=== PATIENT | female | born 1975 | race African-American/Black ===

== ENCOUNTER 2021-02-21 08:03 | Emergency (ER) | payer OTHER, SELFPAY ==
[2021-02-21 08:16] VITALS: BP 147/74; PULSE 70; RESP 18; TEMP 36.6; O2SAT 100
--- NOTE | 2021-02-21 08:27 | ED.EAR ---
HPI - Ear Problem General Chief complaint: Ear Stated complaint: Ear Pain Time Seen by Provider: 02/21/21 08:16 Source: patient and RN notes reviewed Mode of arrival: ambulatory Limitations: no limitations History of Present Illness HPI Narrative: Patient presents today complaining of right ear pain since yesterday. Patient does report some clear drainage, but states she is hearing well. Currently rates her pain 9/10 with intermittent sharp pains. She has been taking Claritin which has been helping. Denies any additional symptoms. MD Complaint: ear pain Related Data Home Medications Medication Instructions Recorded Confirmed hydrochlorothiazide 25 mg PO DAILY 02/21/21 02/21/21 Allergies Allergy/AdvReac Type Severity Reaction Status Date / Time No Known Allergies Allergy Verified 02/21/21 08:20 Review of Systems Review of Systems: CONSTITUTIONAL: Denies body aches, fever, chills, or sweats. EYES: Denies visual changes, redness, or discharge. ENT: Denies rhinorrhea, congestion, sore throat. + Right ear pain CARDIOVASCULAR: Denies chest pain, palpitations, or edema. RESPIRATORY: Denies cough or dyspnea. GASTROINTESTINAL: Denies abdominal pain, nausea, vomiting, or diarrhea. GENITOURINARY: Denies dysuria or hematuria. SKIN: Denies rash, itching, or wounds. MUSCULOSKELETAL: Denies back pain, joint pain, or myalgia. NEUROLOGIC: Denies headache, numbness, tingling, or weakness. PSYCH: Denies depression or anxiety. FORMERLY [facility] Past Medical History Medical History (Updated 02/21/21 @ 08:33 by Zonia Palomares, [facility], ) Diabetes Hypertension Comments At time of signature, I have reviewed and agree with nursing past medical, surgical, social and family history unless otherwise noted. Please see nursing chart for further information. There is no relevant family history pertinent to the presenting complaint Exam Narrative: GENERAL: Well-appearing, over-nourished, and in no acute distress. HEAD: Normocephalic, atraumatic. EYES: EOMI. No redness or drainage. Conjunctivae normal. ENT: Mucous membranes pink and moist. Nares clear. No rhinorrhea. Left TM and canal normal. Right TM normal with middle ear effusion. Canal normal. Throat normal. Uvula midline. NECK: Normal AROM. Supple. No lymphadenopathy. CHEST: No respiratory distress. EXTREMITIES: Normal range of motion. No edema. SKIN: Warm, dry, no rash. Capillary refill normal. Normal skin turgor. NEURO: No focal deficits. Alert and oriented x3. Gait steady. PSYCH: Normal affect. No signs of depression or anxiety. Course Vital Signs Vital signs: Vital Signs Temperature 97.9 F 02/21/21 08:16 Pulse Rate 70 02/21/21 08:16 Respiratory Rate 18 02/21/21 08:16 Blood Pressure 147/74 H 02/21/21 08:16 Pulse Oximetry 100 02/21/21 08:16 Temperature 97.9 F 02/21/21 08:16 Pulse Rate 70 02/21/21 08:16 Respiratory Rate 18 02/21/21 08:16 Blood Pressure 147/74 H 02/21/21 08:16 Pulse Oximetry 100 02/21/21 08:16 Reviewed. Pt has been instructed to follow up with her PCP regarding her elevated blood pressure today. Medical Decision Making Differential Diagnosis Differential Diagnosis: Otitis media, otitis externa, ruptured TM, serous otitis, eustachian tube dysfunction Vital Signs Vital Signs: Vital Signs Temperature 97.9 F 02/21/21 08:16 Pulse Rate 70 02/21/21 08:16 Respiratory Rate 18 02/21/21 08:16 Blood Pressure 147/74 H 02/21/21 08:16 Pulse Oximetry 100 02/21/21 08:16 Temperature 97.9 F 02/21/21 08:16 Pulse Rate 70 02/21/21 08:16 Respiratory Rate 18 02/21/21 08:16 Blood Pressure 147/74 H 02/21/21 08:16 Pulse Oximetry 100 02/21/21 08:16 Critical Care Time Critical Care Time Critical Care Time: No Discharge Plan Discharge Clinical Impression: Acute serous otitis media of right ear Qualifiers: Recurrence: not specified as recurrent Qualified Code(s): H65.01 - Acute serous otitis
== END 2021-02-21 08:36 | disposition home or self-care (01) ==
PROVIDERS: Emergency Provider Nurse Practitioner
DX: H65.01 Acute serous otitis media, right ear (principal); E11.9 Type 2 diabetes mellitus without complications; I10 Essential (primary) hypertension
CPT/HCPCS: 99202; G0463

== ENCOUNTER 2021-05-08 15:53 | Emergency (ER) | payer OTHER, SELFPAY ==
[2021-05-08 16:12] VITALS: BP 150/73; PULSE 91; RESP 16; TEMP 36.3; O2SAT 100
--- NOTE | 2021-05-08 16:27 | ED.SKABFB ---
HPI - Skin/Abscess/Foreign Bdy General Chief complaint: Skin/Abscess/Foreign Body Stated complaint: rash Time Seen by Provider: 05/08/21 16:20 Source: patient Mode of arrival: ambulatory Limitations: no limitations History of Present Illness HPI narrative: 45-year-old female presents to the [facility] with complaints of an itchy rash for the last 3 weeks. States the rash has cleared on her buttock and her back and abdomen. Still having on bilateral arms. Patient reports that her significant other had changed the laundry detergent recently. Denies any facial swelling, tongue swelling, shortness of breath or chest pain. Denies any abdominal pain. Discussed with patient the importance of follow-up along with close monitoring of her blood sugars. MD complaint: rash Related Data Home Medications Medication Instructions Recorded Confirmed hydrochlorothiazide 25 mg PO DAILY 02/21/21 02/21/21 Allergies Allergy/AdvReac Type Severity Reaction Status Date / Time No Known Allergies Allergy Verified 02/21/21 08:20 Review of Systems Review of Systems: All systems reviewed & are unremarkable except as noted in HPI and below Constitutional: Constitutional: Reports no additional constitutional complaints, Denies chills and Denies fever(s) Eyes: Eyes: Reports no additional eye complaints ENT: Reports system reviewed and no additional complaints, except as documented Cardiovascular: Cardiovascular: Reports no additional cardiovascular complaints Gastrointestinal: Gastrointestinal: Reports no additional gastrointestinal complaints Musculoskeletal: Musculoskeletal: Reports no additional musculoskeletal complaints Integumentary/Breasts: Skin/Breast: Reports as per HPI and Reports rash Neurologic: Reports system reviewed and no additional complaints, except as documented Psychiatric: Psychiatric: Reports no additional psychiatric complaints Allergic/Immunologic: Allergic/Immunologic: Reports no additional allergic/immunologic complaints PMFSH Past Medical History Medical History Diabetes Hypertension Social History Social History (Updated 05/09/21 @ 14:51 by Vangie Hardy) Living arrangements: with family Gender identity (if verbalized by the patient): Female Comments At the time of my signature, I reviewed and agree with the nursing past medical, surgical, social, and family history. There is no relevant family history pertinent to the patient complaint. Exam Const: General: healthy appearing, no acute distress and alert Nutritional Appearance: well nourished and obese Orientation/consciousness: patient oriented x3 Limitations: no limitations HENMT: Head: normal to inspection Ears: external ears normal, TM's normal bilaterally and EAC's normal Eyes: Conjunctivae: conjunctivae normal Pupils: Equal, round and reactive pupils present Neck: Neck: normal visual inspection, no lymphadenopathy and no meningeal signs Chest: Chest palpation & inspection: normal inspection of the chest Resp: Effort & Inspection: normal respiratory effort Auscultation: clear to auscultation bilaterally Cardio: Rate: regular rate Rhythm: regular rhythm GI: GI Palp: Yes Soft to palpation and No Tenderness to palpation present (GI) : General: Yes no CVA tenderness Back/Spine/Pelvis: Back: no CVA tenderness Skin: Wounds: no wounds Other: Hives noted to left upper arm Neuro: General: patient oriented x3, moves all extremities and no meningeal signs Speech: normal speech Gait exam (Neuro): Normal gait present Extrem: General: normal to inspection Psych: Appearance: grossly normal and well kempt Mental Status: mental status grossly normal Affect: normal affect Attitude: cooperative Thought content: Yes Normal thought content present Course Course Emergency Course: Discharge instructions reviewed with patient, as well as provided in writing per nursing staff. T
[2021-05-08 16:28] LABS: Glucose Point of Care 206 mg/dl (65-105)
== END 2021-05-08 16:53 | disposition home or self-care (01) ==
PROVIDERS: Emergency Provider Nurse Practitioner
DX: L25.9 Unspecified contact dermatitis, unspecified cause (principal); E11.9 Type 2 diabetes mellitus without complications
CPT/HCPCS: 82948; 99213; G0463

== ENCOUNTER 2021-08-22 09:56 | Emergency (ER) | payer OTHER, SELFPAY ==
--- NOTE | 2021-08-22 10:03 | ED.URI ---
HPI - URI/Sore Throat General Chief Complaint: Ear Stated Complaint: Nausea,Ear Pain Time Seen by Provider: 08/22/21 10:06 Source: patient, RN notes reviewed and old records reviewed Mode of arrival: ambulatory Limitations: no limitations History of Present Illness HPI Narrative: 46-year-old female presents to the [facility] with complaints of right ear pain and drainage. Patient reports a history of ear issues in that same ear. Denies fevers. Has had nausea without vomiting. Denies chest pain or shortness of breath. No abdominal pain. Related Data Home Medications Medication Instructions Recorded Confirmed hydrochlorothiazide 25 mg PO DAILY 02/21/21 08/22/21 Allergies Allergy/AdvReac Type Severity Reaction Status Date / Time No Known Allergies Allergy Verified 08/22/21 10:02 Review of Systems Review of Systems: All systems reviewed & are unremarkable except as noted in HPI and below Constitutional: Constitutional: Reports no additional constitutional complaints, Denies chills, Denies fever(s) and Denies headache(s) Eyes: Eyes: Reports no additional eye complaints ENT: Reports as per HPI, Denies vertigo, Denies dizziness, Denies headache(s), Denies nasal congestion and Denies sore throat Comments: Right ear pain Cardiovascular: Cardiovascular: Reports no additional cardiovascular complaints, Denies chest pain, Denies syncope, Denies rapid heart rate and Denies dyspnea Respiratory: Respiratory: Reports no additional respiratory complaints, Denies cough, Denies dyspnea and Denies wheezing Gastrointestinal: Gastrointestinal: Reports as per HPI, Denies abdominal pain, Denies diarrhea, Reports nausea and Denies vomiting Musculoskeletal: Musculoskeletal: Reports no additional musculoskeletal complaints and Denies numbness Integumentary/Breasts: Skin/Breast: Reports system reviewed and no additional complaints, except as docu Neurologic: Reports system reviewed and no additional complaints, except as documented, Denies vertigo, Denies dizziness, Denies syncope, Denies headache(s), Denies focal weakness and Denies numbness Psychiatric: Psychiatric: Reports no additional psychiatric complaints Allergic/Immunologic: Allergic/Immunologic: Reports no additional allergic/immunologic complaints and Denies wheezing PMFSH Past Medical History Medical History Diabetes Hypertension Social History Social History (Updated 05/09/21 @ 14:51 by Vangie Hardy) Gender identity (if verbalized by the patient): Female Comments At the time of my signature, I reviewed and agree with the nursing past medical, surgical, social, and family history. There is no relevant family history pertinent to the patient complaint. Exam Const: General: cooperative, healthy appearing, no acute distress, well developed and alert Nutritional Appearance: well nourished and obese Orientation/consciousness: patient oriented x3 Limitations: no limitations HENMT: Head: normal to inspection Ears: external ears normal, EAC's normal, mastoids normal, no periauricular adenopathy and TM abnormal erythematous on the right and with loss of landmarks on the right General nose exam: Normal external nose present and Normal nasal mucous membranes and turbinates present Face and sinus: normal facial exam Mouth: Yes Normal oral and palatal mucosa present and Yes lip normal Throat: posterior oropharynx normal, tonsils normal and uvula midline Eyes: Conjunctivae: conjunctivae normal Pupils: Equal, round and reactive pupils present Neck: Neck: normal visual inspection, no lymphadenopathy and no meningeal signs Chest: Chest palpation & inspection: normal inspection of the chest Resp: Effort & Inspection: normal respiratory effort and no use of accessory muscles Auscultation: clear to auscultation bilaterally, no crackles, no rales, no rhonchi and no wheezes Cardio: Rate: regular rate Rhythm: regular rhythm
[2021-08-22 10:07] VITALS: BP 159/80; PULSE 83; RESP 18; TEMP 36.3; O2SAT 100
[2021-08-22 10:12] VITALS: BP 159/80; PULSE 83; RESP 18; TEMP 36.3; O2SAT 100
== END 2021-08-22 10:17 | disposition home or self-care (01) ==
PROVIDERS: Emergency Provider Nurse Practitioner
DX: H66.001 Acute suppurative otitis media without spontaneous rupture of ear drum, right ear (principal); E11.9 Type 2 diabetes mellitus without complications; I10 Essential (primary) hypertension
CPT/HCPCS: 99213; G0463

== ENCOUNTER 2021-11-11 23:44 | Emergency (ER) | payer OTHER, SELFPAY ==
[2021-11-11 23:46] VITALS: BP 190/84; PULSE 96; RESP 14; TEMP 36.9; O2SAT 100
--- NOTE | 2021-11-11 23:47 | ED.HA ---
HPI - Headache General Chief Complaint: Headache Stated Complaint: Headache Time Seen by Provider: 11/11/21 23:46 History of Present Illness HPI Narrative: 46-year-old female presents to the emergency room for evaluation of a headache that has been present for 3 weeks. Patient states the pain is over her left eye and left cheek. Patient states the pain is worse when she applies pressure when she bends over to put her shoes on. Patient denies fever. Associated with nausea, vomiting, and nonproductive cough. Patient states that she took a Z-Yadiel, which she just happened to have laying around, which had no effect on her symptoms. Denies photophobia, phonophobia, nausea or vomiting. Denies injury or trauma Related Data Home Medications Medication Instructions Recorded Confirmed hydrochlorothiazide 25 mg PO DAILY 02/21/21 09/19/21 insulin lispro 100 unit/mL 30.5 unit SUBCUT QACBREAK 09/19/21 09/19/21 subcutaneous half-unit pen metformin 1,000 mg tablet 1,000 mg PO BID 09/19/21 09/19/21 Allergies Allergy/AdvReac Type Severity Reaction Status Date / Time No Known Allergies Allergy Verified 09/19/21 15:09 Review of Systems Review of Systems: CONSTITUTIONAL: Denies fever, chills, or sweats. EYES: Denies visual changes, redness, or discharge. ENT: Denies rhinorrhea, congestion, sore throat, or otalgia. CARDIOVASCULAR: Denies chest pain, palpitations, or edema. RESPIRATORY: Denies cough or dyspnea. GASTROINTESTINAL: Denies abdominal pain, nausea, vomiting, or diarrhea. GENITOURINARY: Denies dysuria or hematuria. SKIN: Denies rash or itching. MUSCULOSKELETAL: Denies back pain, joint pain, or myalgia. NEUROLOGIC: Reports headache PSYCHIATRIC: Denies anxiety or depression. FORMERLY [facility] Past Medical History Medical History (Updated 11/12/21 @ 00:12 by Elbert Gonzales APRN) Diabetes Hypertension Family History Family History Mother Diabetes mellitus Social History Social History Smoking status: Never smoker Alcohol intake: never Substance use: never Gender identity (if verbalized by the patient): Female Exam Narrative: GENERAL: Well-appearing, well-nourished, and in no acute distress. HEAD: Normocephalic, atraumatic. Tenderness over the left frontal and left maxillary sinuses EYES: PERRLA and EOMI. ENT: Nares clear, no rhinorrhea or epistaxis. Mucous membranes moist. Oropharynx without tonsillar hypertrophy exudate or other lesions. Bilateral TMs pearly telles nonbulging NECK: Supple. No adenopathy or masses. No carotid bruits or JVD CHEST: Clear to auscultation. No respiratory distress. No wheezes rales or rhonchi HEART: Regular rate and rhythm. No murmur heard. Normal peripheral pulses. ABDOMEN: Soft, nontender, nondistended, normal active bowel sounds. EXTREMITIES: Normal range of motion. No edema. SKIN: Warm, dry, no rash. NEURO: No focal deficits. Alert and oriented x3. PSYCH: Normal mood and affect. MDM - Headache Differential Diagnosis Differential diagnosis: Likely sinusitis Medical Records Attestation: I reviewed the patient's medical records. Discharge Plan Discharge Clinical Impression: Sinusitis Qualifiers: Sinusitis location: frontal Chronicity: acute Recurrence: non-recurrent Qualified Code(s): J01.10 - Acute frontal sinusitis, unspecified Headache Qualifiers: Headache type: unspecified Headache chronicity pattern: acute headache Intractability: not intractable Qualified Code(s): R51.9 - Headache, unspecified Hypertension Qualifiers: Hypertension type: primary hypertension Qualified Code(s): I10 - Essential (primary) hypertension Patient Disposition: Home, Self-Care Condition: Stable Instructions: Antibiotic Form, Sinusitis (ED), Hypertension (ED) Additional Instructions: Strongly encourage you to follow-up with your primary care physician next week about you
[2021-11-11 23:55] VITALS: BP 149/76; PULSE 90; RESP 20; TEMP 36.9; O2SAT 100
[2021-11-12] MEDS: AMOXICILLIN/CLAVULANATE K 875-125 MG TAB 1 TABLET PO (01:11)
== END 2021-11-12 01:12 | disposition home or self-care (01) ==
PROVIDERS: Emergency Provider Nurse Practitioner Family
DX: J01.10 Acute frontal sinusitis, unspecified (principal); R51.9 Headache, unspecified; I10 Essential (primary) hypertension; E11.9 Type 2 diabetes mellitus without complications; Z79.4 Long term (current) use of insulin; Z79.84 Long term (current) use of oral hypoglycemic drugs
CPT/HCPCS: 99283; A9270

== ENCOUNTER 2023-02-03 14:35 | Emergency (ER) | payer OTHER, SELFPAY ==
[2023-02-03 14:51] VITALS: BP 156/75; PULSE 73; RESP 16; TEMP 36.9; O2SAT 98
--- NOTE | 2023-02-03 15:48 | ED.GENADULT ---
HPI - General Adult General Chief complaint: Ear Stated complaint: ringing in ears, right ear pain Time Seen by Provider: 02/03/23 15:30 Source: patient and RN notes reviewed Mode of arrival: ambulatory Limitations: no limitations History of Present Illness HPI narrative: Patient presents today complaining of a 3 month history of bilateral ringing in the ears, and right ear pressure and right maxillary sinus pressure for 1-2 months. She has been taking Sudafed and Tylenol or recently some mild relief. History of diabetes. Related Data Home Medications Medication Instructions Recorded Confirmed hydrochlorothiazide 25 mg tablet 25 mg PO DAILY 02/21/21 02/03/23 metformin 1,000 mg tablet 1,000 mg PO BID 09/19/21 02/03/23 ferrous sulfate 325 mg (65 mg 325 mg PO DAILY 02/03/23 02/03/23 iron) tablet (FeroSul) insulin glargine 100 unit/mL (3 30 unit subcut HS 02/03/23 02/03/23 mL) subcutaneous pen (Lantus Solostar U-100 Insulin) Allergies Allergy/AdvReac Type Severity Reaction Status Date / Time No Known Allergies Allergy Verified 02/03/23 15:01 Review of Systems Review of Systems: CONSTITUTIONAL: Denies body aches, fever, chills, or sweats. EYES: Denies visual changes, redness, or discharge. ENT: Denies rhinorrhea, congestion, sore throat. + right ear pressure, right sinus pressure, bilateral ear ringing CARDIOVASCULAR: Denies chest pain, palpitations, or edema. RESPIRATORY: Denies cough or dyspnea. GASTROINTESTINAL: Denies abdominal pain, nausea, vomiting, or diarrhea. GENITOURINARY: Denies dysuria or hematuria. SKIN: Denies rash, itching, or wounds. MUSCULOSKELETAL: Denies back pain, joint pain, or myalgia. NEUROLOGIC: Denies headache, numbness, tingling, or weakness. PSYCH: Denies depression or anxiety. [facility]LY [facility] Past Medical History Medical History Diabetes Hypertension Family History Family History Mother Diabetes mellitus Social History Social History Smoking status: Never smoker Alcohol intake: never Substance use: never Living arrangements: with family Gender identity (if verbalized by the patient): Female Comments At time of signature, I have reviewed and agree with nursing past medical, surgical, social and family history unless otherwise noted. Please see nursing chart for further information. There is no relevant family history pertinent to the presenting complaint Exam Narrative: GENERAL: Well-appearing, well-nourished, and in no acute distress. HEAD: Normocephalic, atraumatic. EYES: EOMI. No redness or drainage. Conjunctivae normal. ENT: Mucous membranes pink and moist. Nares clear. No rhinorrhea. TMs normal bilaterally. Throat normal. Uvula midline. Bilateral frontal and right maxillary sinus pressure with palpation. NECK: Normal AROM. Supple. No lymphadenopathy. CHEST: No respiratory distress. Clear to auscultation. HEART: Regular rate and rhythm. No murmur appreciated. Normal peripheral pulses. EXTREMITIES: Normal range of motion. No edema. SKIN: Warm, dry, no rash. Capillary refill normal. Normal skin turgor. NEURO: No focal deficits. Alert and oriented x3. Gait steady. PSYCH: Normal affect. No signs of depression or anxiety. Course Course Level of Care: Express Care Visit Vital Signs Vital signs: Vital Signs Temperature 98.4 F 02/03/23 14:51 Pulse Rate 73 02/03/23 14:51 Respiratory Rate 16 02/03/23 14:51 Blood Pressure 156/75 H 02/03/23 14:51 Pulse Oximetry 98 02/03/23 14:51 Oxygen Delivery Room Air 02/03/23 14:51 Temperature 98.4 F 02/03/23 14:51 Pulse Rate 73 02/03/23 14:51 Respiratory Rate 16 02/03/23 14:51 Blood Pressure 156/75 H 02/03/23 14:51 Pulse Oximetry 98 02/03/23 14:51 Oxygen Delivery Room Air 02/03/23 14:51
== END 2023-02-03 15:57 | disposition home or self-care (01) ==
PROVIDERS: Emergency Provider Nurse Practitioner; PCP Family Medicine
DX: J32.9 Chronic sinusitis, unspecified (principal); E11.9 Type 2 diabetes mellitus without complications; I10 Essential (primary) hypertension
CPT/HCPCS: 99213; G0463

== ENCOUNTER 2023-07-12 11:32 | Emergency (ER) | payer OTHER, SELFPAY ==
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
[2023-07-12 11:43] VITALS: BP 148/83; PULSE 75; RESP 16; TEMP 37.2; O2SAT 99
== END 2023-07-12 11:57 | disposition short-term general hospital (02) ==
PROVIDERS: Emergency Provider Nurse Practitioner; PCP Family Medicine
DX: R51.9 Headache, unspecified (principal); H53.8 Other visual disturbances; E11.9 Type 2 diabetes mellitus without complications; I10 Essential (primary) hypertension; Z79.84 Long term (current) use of oral hypoglycemic drugs; Z79.899 Other long term (current) drug therapy; V49.40XA Driver injured in collision with unspecified motor vehicles in traffic accident, initial encounter
CPT/HCPCS: 99213; G0463